=== PATIENT | male | born 1995 | race Caucasian/White ===

== ENCOUNTER 2023-07-27 13:01 | Emergency (ER) | payer SELFPAY ==
[~2023-07-27] VITALS: Ht 180.3 cm; Wt 61.2 kg
[2023-07-27] MEDS ORDERED: Rabies Vaccine 1 ML VIAL IM ONE (13:50)
[2023-07-27] MEDS ORDERED: Tdap Vaccine 0.5 ML SYR (Adult Vaccine) IM ONE (13:50)
[2023-07-27] MEDS ORDERED: METRONIDAZOLE500 M1 PO (13:50)
[2023-07-27] MEDS ORDERED: SEPTDS PO (13:50)
[2023-07-27] MEDS ORDERED: Rabies Immune Globulin 300 UNIT/2 ML VIAL IM ONE (13:50)
== END 2023-07-27 14:24 | disposition home or self-care (01) ==
LOC: ED 13:01
DX: S61.250A Open bite of right index finger without damage to nail, initial encounter (principal); Z88.0 Allergy status to penicillin; W55.51XA Bitten by raccoon, initial encounter; Y93.89 Activity, other specified; Y92.89 Other specified places as the place of occurrence of the external cause; Y99.8 Other external cause status

== ENCOUNTER 2023-07-30 20:32 | Emergency (ER) | payer SELFPAY ==
[~2023-07-30] VITALS: Ht 180.3 cm; Wt 61.2 kg
[~2023-07-30 20:32] MED LIST: METRONIDAZOLE500 M1 PO; SEPTDS PO
[2023-07-30] MEDS ORDERED: Rabies Vaccine 1 ML VIAL IM ONE (20:45)
== END 2023-07-30 21:05 | disposition home or self-care (01) ==
LOC: ED 20:32
DX: S61.250D Open bite of right index finger without damage to nail, subsequent encounter (principal); Z23 Encounter for immunization; Z88.0 Allergy status to penicillin; Z79.2 Long term (current) use of antibiotics; Z79.899 Other long term (current) drug therapy; W55.51XD Bitten by raccoon, subsequent encounter

== ENCOUNTER 2023-08-03 17:01 | Emergency (ER) | payer SELFPAY ==
[~2023-08-03] VITALS: Ht 180.3 cm; Wt 61.2 kg
[2023-08-03] MEDS ORDERED: Rabies Vaccine 1 ML VIAL IM ONE (17:10)
== END 2023-08-03 17:17 | disposition home or self-care (01) ==
LOC: ED 17:01
DX: S61.451D Open bite of right hand, subsequent encounter (principal); Z88.0 Allergy status to penicillin; W55.51XD Bitten by raccoon, subsequent encounter

== ENCOUNTER 2023-08-11 16:14 | Emergency (ER) | payer SELFPAY ==
[~2023-08-11] VITALS: Ht 180.3 cm; Wt 61.2 kg
[2023-08-11] MEDS ORDERED: Rabies Vaccine 1 ML VIAL IM ONE (17:35)
== END 2023-08-11 17:48 | disposition home or self-care (01) ==
LOC: ED 16:14
DX: S61.250D Open bite of right index finger without damage to nail, subsequent encounter (principal); Z23 Encounter for immunization; Z88.0 Allergy status to penicillin; W55.51XD Bitten by raccoon, subsequent encounter